=== PATIENT | female | born 1945 | race Caucasian/White ===

== ENCOUNTER → 2016-10-10 | Outpatient (CLI) | payer OTHER | LOC: FIMAGING 11:15 | DX: Z12.31 Encounter for screening mammogram for malignant neoplasm of breast (principal); Z80.3 Family history of malignant neoplasm of breast | CPT/HCPCS: G0202 ==

== ENCOUNTER 2016-12-07 19:34 | Emergency (ER) | payer OTHER ==
[2016-12-07 19:40] VITALS: TEMP 97.5
[2016-12-07 20:04] LABS: COLOR PALE YELLOW; LEUKOCYTE ESTERASE,URINE NEGATIVE (NEGATIVE); NITRITE,URINE NEGATIVE (NEGATIVE)
--- NOTE | 2016-12-07 20:57 | EDPHY ---
H & P Time Seen by Provider: 12/07/16 19:54 HPI/ROS: CHIEF COMPLAINT: Possible urinary tract infection HISTORY OF PRESENT ILLNESS: Patient is a 71-year-old female with a history of autoimmune disease who presents emergency department possible urinary tract infection. The patient states that she developed a urinary tract infection last week. She was treated with a twice a day antibiotic (she cannot remember the name). Her symptoms improved. However for the past day she has had increased dysuria, urgency and frequency. No hematuria. She has no abdominal pain or flank pain. No fevers or chills. No nausea or vomiting. REVIEW OF SYSTEMS: My complete review of systems is negative except as mentioned in the HPI. Past Medical/Surgical History: Includes hypertension, autoimmune disease, high cholesterol Smoking Status: Never smoked Physical Exam: Vitals noted. Afebrile. Hypertensive GENERAL: Well-appearing, in no acute distress, alert. HEENT: Eyes normal to inspection, normal pharynx, no signs of dehydration. NECK: No thyromegaly, no lymphadenopathy, supple. RESPIRATORY: Clear to auscultation bilaterally, no rales, rhonchi or wheezing. CVS: Regular rate and rhythm, no rubs, murmurs, or gallops. ABDOMEN: Soft, nontender, nondistended, no organomegaly. Benign BACK: Normal to inspection, no CVA tenderness. SKIN: Normal color, no rash, warm, dry. No pallor. EXTREMITIES: No pedal edema, no calf tenderness, no Homans sign or cords, no joint swelling. NEURO/PSYCH: Alert and oriented, normal mood and affect, normal motor sensory exam. Constitutional: Initial Vital Signs Temperature (C) 36.4 C 12/07/16 19:36 Heart Rate 79 12/07/16 19:36 Respiratory Rate 18 12/07/16 19:36 Blood Pressure 190/108 H 12/07/16 19:36 O2 Sat (%) 100 12/07/16 19:36 O2 Delivery Mode Room Air Allergies/Adverse Reactions: No Known Allergies Allergy (Unverified 02/20/12 12:16) Home Medications: Medication Instructions Recorded Aspirin [Aspirin 325 mg (OTC)] 325 mg PO DAILY 02/20/12 Atorvastatin Calcium [Lipitor 10 10 mg PO DAILY 02/20/12 mg (RX)] Calcium Carb W/Vit D [Calcium Carb 1 each PO BID 02/20/12 W/Vit D 500/200 (OTC)] Cholecalciferol Vit D3 [Vitamin D3 1,000 units PO DAILY 02/20/12 1000 units (OTC)] Completed By Exec. Creative Director 02/20/12 02/20/12 Estradiol [ESTRADIOL] 0.5 mg PO DAILY 02/20/12 Hydrochlorothiazide 25 mg PO DAILY 02/20/12 [Hydrochlorothiazide 25 MG (RX)] Multivitamins [Multivitamin (OTC)] 1 each PO DAILY 02/20/12 [place]-3 Fatty Acids [Fish Oil 1000 1,000 mg PO BID 02/20/12 mg (OTC)] Reconciled By 02/20/12 02/20/12 Ubidecarenone [Co Q-10] 100 mg PO DAILY 02/20/12 Vagifem 10 10 mcg VG WESA 02/20/12 predniSONE [Prednisone] 10 mg PO DAILY PRN 02/20/12 Cephalexin [Keflex (*)] 500 mg PO QID 7 Days 12/07/16 Phenazopyridine HCl [Pyridium] 100 mg PO TID #6 tab 12/07/16 Medical Decision Making ED Course/Re-evaluation: In the emergency department I discussed possible etiologies with the patient and her family. I answered all her questions. I reviewed the patient's culture results from her previous UTI. It was sensitive to most antibiotics. UA here was negative. I was concerned he may get false negative readings due to the patient's recent treatment with antibiotics. Because of this she will be started on Keflex. She will be given a 7 day course. She was also given Pyridium. Urine culture was ordered. She will return with worsening symptoms. She was given warnings prior to leaving. Differential Diagnosis: My differential includes but is not limited to urinary tract infection, pyelonephritis, bacteremia, sepsis, cystitis, urethritis - Data Points Laboratory Results: 12/07/16 19:40 Urine Color PALE YELLOW Urine Appearance CLEAR Urine pH 6.0 (5.0-7.5) Ur Specific [place] 1.005 (1.002-1.030) Urine Protein NEGATIVE (NEGATIVE) Urine Ketones NEGATIVE (NEGATIVE) Urine Blood NEGATIVE (NEGATIVE) Urine Nitrate NEGATIVE (NEGATIVE) Urine Bilirubin NEGATIVE (NEGATIVE) Urine Urobilinogen NEGATIVE EU EU (0.2-1.0) Ur Leukocyte Esterase NEGATIVE (NEGATIVE) Urine Glucose NEGATIVE (NEGATIVE) Departure - Departure Disposition: Home, Routine, Self-Care Clinical Impression: Urinary tract infection Qualifiers: Urinary tract infection type: acute cystitis Hematuria presence: without hematuria Qualified Code(s): N30.00 - Acute cystitis without hematuria Condition: Good Instructions: Urinary Tract Infection in Women (ED) Additional Instructions: Return with increasing abdominal pain, flank pain, vomiting, fever, chills, or any other concerns. Referrals: Misti Oliver MD [Primary Care Provider] - 2-3 days, if not improved Prescriptions: Cephalexin [Keflex (*)] 500 mg PO QID 7 Days Phenazopyridine HCl [Pyridium] 100 mg PO TID #6 tab
[2016-12-07] MEDS ORDERED: CEPHALEXIN 500MG PREPACK#4 BTL TAKEHOME ONE (20:58)
[2016-12-07] MEDS ORDERED: PHENAZOPYRIDINE HCL 200 MG TAB PO ONE (20:58)
[2016-12-07 21:15] VITALS: BP 167/98; PULSE 83; RESP 16; O2SAT 93
== END 2016-12-07 21:14 | disposition home or self-care (01) ==
DX: N30.00 Acute cystitis without hematuria (principal); B96.89 Other specified bacterial agents as the cause of diseases classified elsewhere; I10 Essential (primary) hypertension; Z79.82 Long term (current) use of aspirin

== ENCOUNTER → 2017-12-01 | Outpatient (CLI) | payer OTHER | LOC: FIMAGING 12:45 | PROVIDERS: ATTEND Internal Medicine | DX: Z12.31 Encounter for screening mammogram for malignant neoplasm of breast (principal) ==

== ENCOUNTER → 2018-07-09 | Outpatient (CLI) | payer OTHER | LOC: BHFA 10:00 | PROVIDERS: ATTEND Internal Medicine Cardiovascular Disease | DX: I10 Essential (primary) hypertension (principal) ==